=== PATIENT | female | born 1970 | race Caucasian/White ===

== ENCOUNTER → 2017-03-16 | Outpatient (CLI) | payer BC ==
--- NOTE | 2017-03-16 17:47 | XR ---
EXAMINATION TYPE: XR shoulder complete RT DATE OF EXAM: 03/16/2017 COMPARISON: NONE HISTORY: Pain TECHNIQUE: 3 views FINDINGS: I see no fracture nor dislocation. Joint spaces are normal. There are no pathologic calcifi cations. IMPRESSION: Negative right shoulder exam.
== END | disposition home or self-care (01) ==
LOC: RADXRMAIN 17:16
PROVIDERS: ATTEND Family Medicine
DX: M25.511 Pain in right shoulder (principal)

== ENCOUNTER → 2017-05-28 | Outpatient (CLI) | payer BC ==
--- NOTE | 2017-05-28 09:42 | MR ---
EXAMINATION TYPE: MR shoulder RT wo con DATE OF EXAM: 05/28/2017 9:13 AM COMPARISON: NONE HISTORY: Pain in right shoulder TECHNIQUE: Multiplanar multispin echo imaging of the right shoulder was performed. FINDINGS: Rotator cuff : Thickening of the supraspinatus tendon with partial undersurface tear at the critical zone measuring 7 mm in length. No evidence for full-thickness tear at this time. Remaining constituen ts of the rotator cuff are grossly intact. Bursa: No bursal effusion or thickening is seen. Musculature: There is no muscular tear, contusion, or atrophy. Acromioclavicular joint : Lateral downsloping of the acromion with subacromial spurring resulting in impingement. Osseous structures : There are no fractures or regions of abnormal bone marrow signal intensity. Long biceps tendon : The biceps tendon is normally situated within the bicipital groove. No complete or partial biceps tendon tear is present. Glenohumeral Joint fluid : There is no glenohumeral joint effusion. Cartilage and Bone : No focal hyaline cartilage defects are noted. No Hill-Sachs, reverse Hill-Sachs, or bony Bankart lesions are seen. Labrum : There are no SLAP or soft tissue Bankart lesions. No paralabral cysts are seen. OTHER FINDINGS : none IMPRESSION: 1. Thickening of the supraspinatus tendon with partial undersurface tear at the critical zone measuri ng 7 mm in length. No evidence for full-thickness tear at this time. 2. Subacromial impingement as noted.
== END | disposition home or self-care (01) ==
LOC: RADMRIMAIN 08:14
PROVIDERS: ATTEND Family Medicine
DX: M75.101 Unspecified rotator cuff tear or rupture of right shoulder, not specified as traumatic (principal); M25.811 Other specified joint disorders, right shoulder

== ENCOUNTER → 2017-08-08 | Outpatient (CLI) | payer BC | END | disposition home or self-care (01) | LOC: LABWHC1 10:56 | PROVIDERS: ATTEND Family Medicine | DX: Z01.810 Encounter for preprocedural cardiovascular examination (principal) | CPT/HCPCS: 36415; 93005 ==

== ENCOUNTER → 2017-08-10 | Outpatient (CLI) | payer BC ==
--- NOTE | 2017-08-11 11:38 | ECHOF ---
Referral Reason:Abnormal EKG R94.31 MEASUREMENTS -------- HEIGHT: 165.1 cm WEIGHT: 78.9 kg BP: 115/56 IVSd: 1.0 cm (0.6 - 1.1) LVIDd: 4.3 cm (3.9 - 5.3) LVPWd: 1.1 cm (0.6 - 1.1) IVSs: 1.6 cm LVIDs: 2.2 cm LVPWs: 1.6 cm LAESV Index (A-L): 17.10 ml/m Ao Diam: 2.8 cm (2.0 - 3.7) AV Cusp: 1.9 cm (1.5 - 2.6) LA Diam: 2.5 cm (2.7 - 3.8) MV EXCURSION: 17.918 mm (> 18.000) MV EF SLOPE: 132 mm/s (70 - 150) EPSS: 0.2 cm MV E Jamie: 0.94 m/s MV DecT: 178 ms MV A Jamie: 0.70 m/s MV E/A Ratio: 1.35 RAP: 5.00 mmHg RVSP: 26.79 mmHg FINDINGS -------- Right bundle branch john This was a technically good study. The left ventricular size is normal. Left ventricular wall thickness is normal. Overall left vent ricular systolic function is normal with, an EF between 55 - 60 %. The right ventricle is normal in size and function. The left atrium is normal in size. The right atrium is normal in size. The aortic valve is trileaflet, and appears structurally normal. No aortic stenosis or regurgitation. The mitral valve leaflets are mildly thickened. Mild mitral regurgitation is present. Mild tricuspid regurgitation present. The right ventricular systolic pressure, as measured by Doppl er, is 26.79mmHg. Pulmonic valve appears structurally normal. The aortic root, ascending aorta and aortic arch are normal. Normal inferior vena cava with normal inspiratory collapse consistent with estimated right atrial pre ssure of 5 mmHg. The pericardium is normal. CONCLUSIONS -------- 1. Right bundle branch john 2. This was a technically good study. 3. The left ventricular size is normal. 4. Left ventricular wall thickness is normal. 5. Overall left ventricular systolic function is normal with, an EF between 55 - 60 %. 6. The right ventricle is normal in size and function. 7. The left atrium is normal in size. 8. The right atrium is normal in size. 9. The aortic valve is trileaflet, and appears structurally normal. No aortic stenosis or regurgitati on. 10. The mitral valve leaflets are mildly thickened. 11. Mild mitral regurgitation is present. 12. Mild tricuspid regurgitation present. 13. The right ventricular systolic pressure, as measured by Doppler, is 26.79mmHg. 14. Pulmonic valve appears structurally normal. 15. The aortic root, ascending aorta and aortic arch are normal. 16. Normal inferior vena cava with normal inspiratory collapse consistent with estimated right atrial pressure of 5 mmHg. 17. The pericardium is normal. PUBLIC SAFETY TELECOMMUNICATOR: Bia Coffey RDCS
== END | disposition home or self-care (01) ==
LOC: RADECHMAIN 12:51
PROVIDERS: ATTEND Family Medicine
DX: I08.1 Rheumatic disorders of both mitral and tricuspid valves (principal)
CPT/HCPCS: 93306

== ENCOUNTER → 2019-02-07 | Outpatient (CLI) | payer BC ==
--- NOTE | 2019-02-11 08:48 | MM ---
Reason for exam: screening (asymptomatic). Last mammogram was performed 3 years and 7 months ago. History: Took hormonal contraceptives for 4 years. Took other hormone for 1 year. Physical Findings: A clinical breast exam by your physician is recommended on an annual basis and results should be correlated with mammographic findings. MG 3D Screening Mammo W/Cad Bilateral CC and MLO view(s) were taken. Prior study comparison: June 30, 2015, bilateral MG screening mammo w CAD. February 06, 2014, bilateral MG screening mammo w CAD. The breast tissue is heterogeneously dense. This may lower the sensitivity of mammography. Left skin lesion medially. There is no discrete abnormality. Benign bilateral axillary lymph nodes redemonstrated. ASSESSMENT: Benign, BI-RAD 2 RECOMMENDATION: Routine screening mammogram of both breasts in 1 year.
== END ==
LOC: RADMAMWWP 11:31
PROVIDERS: ATTEND Obstetrics & Gynecology
DX: Z12.31 Encounter for screening mammogram for malignant neoplasm of breast (principal)
CPT/HCPCS: 77063; 77067

== ENCOUNTER → 2020-12-14 | Outpatient (CLI) | payer BC ==
--- NOTE | 2020-12-14 14:59 | XR ---
EXAMINATION TYPE: XR chest 2V DATE OF EXAM: 12/14/2020 COMPARISON: NONE HISTORY: RO6.09 TECHNIQUE: Frontal and lateral views of the chest are obtained. FINDINGS: There is no focal air space opacity, pleural effusion, or pneumothorax seen. The cardiac silhouette size is within normal limits. The patient is rotated. The osseous structures are intact. IMPRESSION: No acute cardiopulmonary process.
== END | disposition home or self-care (01) ==
LOC: RADXRMAIN 11:36
PROVIDERS: ATTEND Family Medicine
DX: R06.09 Other forms of dyspnea (principal)
CPT/HCPCS: 71046

== ENCOUNTER → 2022-07-21 | Outpatient (CLI) | payer BC ==
--- NOTE | 2022-07-21 13:04 | CA ---
Exercise Stress Test Report Name: Brian Beach Exam Date: 07/21/2022 09:09 Exam Location: [facility] Ht (in): 65 Wt (lb): 212 BSA: 2.03 Ordering Phys: Milton Carrera DO Referring Phys: Milton Carrera DO Technologist: Lewis Solorzano Age: 51 Gender: F : 1970 Procedure CPT: Indications: R06.09 Dyspnea ICD-10 Codes: Patient History: Medications: SIMVASTATIN,,,,,, LEVOTHYROXINE,,,,,, MIGRAINE MED,,,,, Meds past 24 hrs: Pretest Chest Pain: STRESS TEST Dustin Protocol Exercise Duration (min:sec): 08:[address] Depressions (mm): Angina Score: Baez Score: Resting HR (bpm): 82 Peak HR (bpm): 149 Resting BP (mmHg): 115 / 91 Peak BP (mmHg): 207 / 94 MPHR: 170 Target HR: 145 % MPHR: 88 METS: 10.3 Total Dose: Peak Dose: Atropine: Double Product: 48874 BP Response: Stress Termination: TARGET HR REACHED/MAX EXERTION Stress Symptoms: DIFFICULTY IN BREATHING,CHEST DISCOMFORT Stress Summary: ECG ANALYSIS Resting ECG: Stress ECG: CONCLUSIONS Patient underwent exercise stress EKG with a Dustin protocol treadmill stress test. Patient exercised into Stage 3 for a total of 8 minutes reaching a total of 10.3 METS. Patient's maximum heart rate was 149 which represented 87 % age-predicted maximum heart rate. Stress EKG findings: At baseline patient's EKG showed normal sinus rhythm, normal axis, no significant ST or T wave abnormalities. At peak exercise, EKG showed no significant change from baseline. Conclusions: 1. Normal EKG response to exercise without evidence of inducible ischemia. 2. Good exercise capacity. 3. Chest discomfort with exertion on treadmill. Clinical correlation recommended. Dr. Jj Arshad DO (Electronically Signed) Final Date: 21 Jul 2022 13:03
== END | disposition home or self-care (01) ==
LOC: RADNMMAIN 08:40
PROVIDERS: ATTEND Family Medicine
DX: R06.09 Other forms of dyspnea (principal); R07.89 Other chest pain
CPT/HCPCS: 93017

== ENCOUNTER → 2022-09-01 | Outpatient (CLI) | payer BC ==
--- NOTE | 2022-09-01 15:36 | CA ---
Transthoracic Echo Report Name: Brian Beach Age: 51 Gender: F : 1970 Exam Date: 09/01/2022 13:12 Exam Location: [facility] Ht (in): 67 Wt (lb): 212 Ordering Physician: Milton Carrera DO Attending/Referring Phys: Building Stonecutter Barb Pereira RDCS Procedure CPT: Indications: R06.09 Cardiac Hx: Technical Quality: Fair Contrast 1: Total Dose (mL): Contrast 2: Total Dose (mL): MEASUREMENTS (Male / Female) Normal Values 2D ECHO LV Diastolic Diameter PLAX 3.9 cm 4.2 - 5.9 / 3.9 - 5.3 cm LV Systolic Diameter PLAX 2.0 cm IVS Diastolic Thickness 1.1 cm 0.6 - 1.0 / 0.6 - 0.9 cm LVPW Diastolic Thickness 1.0 cm 0.6 - 1.0 / 0.6 - 0.9 cm LV Relative Wall Thickness 0.5 RV Internal Dim ED PLAX 3.1 cm LA Volume 28.8 cm??? 18 - 58 / 22 - 52 cm??? M-MODE Aortic Root Diameter MM 2.1 cm LA Systolic Diameter MM 2.9 cm LA Ao Ratio MM 1.4 AV Cusp Separation MM 1.6 cm DOPPLER AV Peak Velocity 129.3 cm/s AV Peak Gradient 6.7 mmHg AV Mean Velocity 89.1 cm/s AV Mean Gradient 3.6 mmHg AV Velocity Time Integral 25.8 cm LVOT Peak Velocity 118.5 cm/s LVOT Peak Gradient 5.6 mmHg LVOT Velocity Time Integral 20.0 cm MV Area PHT 4.5 cm??? Mitral E Point Velocity 56.9 cm/s Mitral A Point Velocity 79.7 cm/s Mitral E to A Ratio 0.7 MV Deceleration Time 170.0 ms MV E' Velocity 8.3 cm/s Mitral E to MV E' Ratio 6.8 TR Peak Velocity 225.2 cm/s TR Peak Gradient 20.3 mmHg Right Ventricular Systolic Press 25.3 mmHg FINDINGS Left Ventricle Mildly increased left ventricular wall thickness. Left ventricular cavity size normal. Normal left ventricular diastolic filling pattern. Normal left ventricular systolic function with no obvious regional wall motion abnormalities. Left ventricular ejection fraction is estimated at 55-60 %. Right Ventricle Normal right ventricular size and function. Right ventricular systolic pressure within normal limits. Right Atrium Normal right atrial size. Left Atrium Normal left atrial size. Mitral Valve Structurally normal mitral valve no mitral stenosis, regurgitation or prolapse. Aortic Valve Trileaflet aortic valve. No aortic valve stenosis or regurgitation. Tricuspid Valve Structurally normal tricuspid valve. Mild tricuspid regurgitation. Pulmonic Valve Structurally normal pulmonic valve. Trace pulmonic regurgitation. Pericardium No pericardial effusion. Aorta Normal size aortic root and proximal ascending aorta. CONCLUSIONS Normal LV function Mild tricuspid regurgitation Previewed by: Dr. Damian Smith MD (Electronically Signed) Final Date: 01 September 2022 15:35
== END | disposition home or self-care (01) ==
LOC: RADECHMAIN 12:48
PROVIDERS: ATTEND Family Medicine
DX: I07.1 Rheumatic tricuspid insufficiency (principal)
CPT/HCPCS: 93306